=== PATIENT | male | born 1955 | race Two or more races ===

== ENCOUNTER 2018-07-15 13:04 | Emergency (ER) | payer SELFPAY ==
[~2018-07-15] VITALS: Ht 172.7 cm; Wt 81.6 kg
[2018-07-15 13:40] VITALS: BP 159/98
--- NOTE | 2018-07-15 13:58 | PHYS DOC ---
Past Medical History Past Medical History: No Pertinent History Past Surgical History: No Surgical History Alcohol Use: None Drug Use: None Adult General Chief Complaint Chief Complaint: WRIST PAIN HPI HPI Patient is a 63 year old male presents the ED complaining of left wrist and hand injury 10 days ago. States he fell down 2 stairs. States he has been icing it and taking [id number] medications without improvement. Describes the pain as sharp. Rates the pain as 8 out of 10. Denies head/neck injury, symptoms prior to fall, use of blood thinners, weakness, dizziness, headache, chest pain or shortness of breath or vision changes. Review of Systems Review of Systems Constitutional: Denies fever or chills [] Respiratory: Denies cough or shortness of breath [] Cardiovascular: No additional information not addressed in HPI [] GI: Denies abdominal pain, nausea, vomiting, bloody stools or diarrhea [] : Denies dysuria or hematuria [] Musculoskeletal: Complains of left wrist/hand injury. Denies back pain. Integument: Denies rash or skin lesions [] Neurologic: Denies headache, focal weakness or sensory changes [] All other systems were reviewed and found to be within normal limits, except as documented in this note. Allergies Allergies Allergies Coded Allergies Type Severity Reaction Last Updated Verified No Known Drug Allergies 07/15/18 No Physical Exam Physical Exam Constitutional: Well developed, well nourished, no acute distress, non-toxic appearance. [] HENT: Normocephalic, atraumatic Neck: Normal range of motion, no tenderness, supple, no stridor. [] Cardiovascular:Heart rate regular rhythm, no murmur [] Lungs & Thorax: Bilateral breath sounds clear to auscultation [] Skin: Warm, dry, no erythema, no rash. [] Back: No tenderness, no CVA tenderness. [] Extremities: mild wrist/hand swelling/tenderness, no cyanosis, no clubbing, ROM intact, no edema. [] Neurologic: Alert and oriented X 3, normal motor function, normal sensory function, no focal deficits noted. [] Psychologic: Affect normal, judgement normal, mood normal. [] Current Patient Data Vital Signs Vital Signs Date Time Temp Pulse Resp B/P (MAP) Pulse Ox O2 Delivery O2 Flow Rate FiO2 07/15/18 13:40 98.8 69 16 159/98 (118) 97 Room Air 98.8 EKG EKG [] Radiology/Procedures Radiology/Procedures PROCEDURE: HAND LEFT 3V Left wrist, 3 views, 07/15/2018: HISTORY: Fall, hand and wrist pain No fracture or dislocation is identified. There are mild scattered degenerative changes. Arterial calcifications are evident. Left hand, 3 views, 07/15/2018: There are mild scattered degenerative changes. A well-defined calcific density along the dorsal aspect of the PIP joint of the ring finger is compatible with old trauma. No acute fracture or dislocation is identified. IMPRESSION: No acute bony abnormality is detected.[] Course & Med Decision Making Course & Med Decision Making Pertinent Labs and Imaging studies reviewed. (See chart for details) []Discussed imaging findings with patient. Patient's pain improved. Splint placed. Neurovascular intact post placement. Discussed follow-up with orthopedics this week. Provided contact information/education. Discussed reasons to return to the ED. Patient understands and agrees with plan. Staff Physician Addendum: I was working in the ER during the course of this patient's visit. I was available for consultation as needed, but I was not directly involved in the care of this patient. Dragon Disclaimer Dragon Disclaimer This electronic medical record was generated, in whole or in part, using a voice recognition dictation system. Departure Departure Impression: Primary Impression: Forearm fracture Disposition: 01 HOME, SELF-CARE Condition: IMPROVED Referrals: NO PCP (PCP) ALLYSON LE II, MD Patient Instructions: Forearm Fracture JENNA ROUSE Jul 15, 2018 13:58 SOCORRO SANTIAGO MD Jul 15, 2018 16:26
--- NOTE | 2018-07-15 14:49 | RAD ---
Left wrist, 3 views, 07/15/2018: HISTORY: Fall, hand and wrist pain No fracture or dislocation is identified. There are mild scattered degenerative changes. Arterial calcifications are evident. Left hand, 3 views, 07/15/2018: There are mild scattered degenerative changes. A well-defined calcific density along the dorsal aspect of the PIP joint of the ring finger is compatible with old trauma. No acute fracture or dislocation is identified. IMPRESSION: No acute bony abnormality is detected. Electronically signed by: Adrian Cole MD (07/15/2018 2:47 PM) [facility]
--- NOTE | 2018-07-15 14:49 | RAD ---
Left wrist, 3 views, 07/15/2018: HISTORY: Fall, hand and wrist pain No fracture or dislocation is identified. There are mild scattered degenerative changes. Arterial calcifications are evident. Left hand, 3 views, 07/15/2018: There are mild scattered degenerative changes. A well-defined calcific density along the dorsal aspect of the PIP joint of the ring finger is compatible with old trauma. No acute fracture or dislocation is identified. IMPRESSION: No acute bony abnormality is detected. Electronically signed by: Adrian Cole MD (07/15/2018 2:47 PM) [facility]
--- NOTE | 2018-07-15 15:23 | RAD ---
Examination: 2 views of the left forearm HISTORY: History of fall, pain COMPARISON: None available FINDINGS: There is nondisplaced fracture of the distal ulna diaphysis. The alignment of the radius, ulna grossly appears unremarkable. Vascular calcifications identified. IMPRESSION: Nondisplaced fracture of the distal ulnar diaphysis. Electronically signed by: Juancarlos Gomez MD (07/15/2018 3:21 PM) [id number]
== END 2018-07-15 15:58 | disposition home or self-care (01) ==
LOC: ER 13:04
DX: S52.692A Other fracture of lower end of left ulna, initial encounter for closed fracture (principal); W10.8XXA Fall (on) (from) other stairs and steps, initial encounter; Y93.89 Activity, other specified; Y92.89 Other specified places as the place of occurrence of the external cause; Y99.8 Other external cause status
CPT/HCPCS: 73090; 73110; 73130; 99284